=== PATIENT | male | born 1970 | race Caucasian/White ===

== ENCOUNTER → 2016-11-05 | Outpatient (CLI) | payer OTHER ==
[~2016-11-05] VITALS: Ht 180.3 cm; Wt 93.8 kg
[~2016-11-05] MED LIST: BUPR-79 PO; DULO-24 PO
[2016-11-05 15:54] VITALS: BP 142/89; PULSE 80; Ht 180.3 cm; Wt 93.8 kg
== END | disposition home or self-care (01) ==
LOC: C.NEUR 15:36
PROVIDERS: ATTEND Internal Medicine Pulmonary Disease
DX: G47.419 Narcolepsy without cataplexy (principal)

== ENCOUNTER → 2017-03-18 | Outpatient (CLI) | payer OTHER ==
[2017-03-18 09:31] LABS: BASO % 0.5 %; BASO ABS # 0.03 K/uL (0-0.2); COMPLETE YES; EOS % 2.5 %; HEMATOCRIT 43.7 % (42-52); IG% 0.3 %; LYMPH % 32.3 %; LYMPH ABS # 1.93 K/uL (1.2-3.4); MEAN CORPUSCULAR HEMOGLOBIN 30.5 pg (25-34); MEAN CORPUSCULAR HGB CONC 34.3 g/dl (32-36); MEAN PLATELET VOLUME 11.7 fL (7.4-10.4); MONO % 10.6 %; NEUT % 53.8 %; PLATELET COUNT 268 K/uL (130-400); RED BLOOD COUNT 4.91 M/uL (4.7-6.1); WHITE BLOOD COUNT 5.97 K/uL (4.8-10.8)
[2017-03-18 09:44] LABS: BLOOD UREA NITROGEN 16 mg/dl (7-18); GLUCOSE 109 mg/dl (70-99)
[2017-03-18 09:45] LABS: BUN/CREATININE RATIO 13.6 (10-20); CALCIUM 9.2 mg/dl (8.5-10.1); CARBON DIOXIDE 29 mmol/L (21-32); CHLORIDE 105 mmol/L (98-107); CHOLESTEROL 207 mg/dl (0-200); SODIUM 139 mmol/L (136-145)
[2017-03-18 09:55] LABS: CHOLESTEROL/HDL RATIO 4.1; HDL CHOLESTEROL 50 mg/dl; LDL CHOLESTEROL CALCULATED 133 mg/dl; TRIGLYCERIDES 119 mg/dl (0-150); VERY LOW DENSITY LIPOPROT CALC 24 mg/dl
== END | disposition home or self-care (01) ==
LOC: C.LAB1850 08:12
PROVIDERS: ATTEND Internal Medicine
DX: G47.419 Narcolepsy without cataplexy (principal); E78.5 Hyperlipidemia, unspecified; E87.6 Hypokalemia

== ENCOUNTER → 2017-09-01 | Outpatient (CLI) | payer OTHER ==
--- NOTE | 2017-09-02 06:02 | PAP/PSG TECHNICIAN REPORT ---
[facility] Auto Fleet Maintenance Manager Polysomnogram Report Study name: None Report date: 09/02/2017 Study date: 09/01/2017 Referring Physician: Dr. Connor Name: Latonya TRUJILLO Interpreting Physician: Jasen Berg D.O. Date of : 1970 Auto Fleet Maintenance Manager: Néstor Mcfadden RPSGT. Sex: Male Age: 47 StudyType: PSG Weight: 204 lbs Height: 47 years, Height 5' 11" BMI: 28.45 Medications: LISINOPRIL 10 MG, FLUOXETINE HCL 20 MG, RISPERDAL 0.25 MG, VIT D, MECLIZINE HCL 12.5 MG, ARMODAFINIL 250 MG, Patient History PATIENT HAS HISTORY OF HYPERTENSION, DEPRESSION, ANXIETY, NARCOLEPSY AND HYPERLIPIDEMIA. ALSO HAS HISTORY OF DAYTIME SLEEPINESS, LOW ENERGY AND SNORING. HE IS HERE TODAY FOR AN EVALUATION FOR CHRISTY. ESS = 10 RM 8 Parameters Monitored NPSG: E1-M2, E2-M1, Fp1-M2, Fp2-M1, F3-M2, F4-M2, F4-M1, C3-M2, C4-M2, C4-M1, O1-M2, O2-M2, O2-M1, T3-M2, T4-M1, P3-M2, P4-M1, CHIN1, CHIN2, HR, EKG, Legs, PFLOW, SNOR, FLOW, CFLOW, Tidal Volume, THOR, ABDO, SpO2, PLTH, CPRESS, ETCO2 Wave, ETCO2, pH Sleep Architecture Sleep Stages Time at Lights Off 9:25:33 PM STAGES Time (min.) TST (%) Time at Lights On 5:35:03 AM Wake 26.5 -- Total Recording Time (TRT) 490.00 min. N1 21.5 5 Total Sleep Period (TSP) 476.5 min. N2 268.0 58 Total Sleep Time (TST) 463.0min. N3 42.5 9 Awake Time 27.0 min. REM 131.0 28 Wake after Sleep Onset 13.5 min. Sleep Efficiency (SE) 95 % Sleep Onset Latency (GERALD) 13.0 min. Number of Stage 1 Shifts None Awakenings 14 Stage Changes 77 Number of REM periods 11 REM 131.0 28 REM Latency 60.0 min. NREM 332.0 72 Body Position Analysis Supine Right Left Side Prone Vertical Total Sleep Time (min.) 405.3 0.0 83.2 83.21 0.0 0.0 Total Sleep Time (%) 82% 0% 18% 18 0% N/A% Total Sleep Time REM (min.) 114.5 0.0 16.5 None 0.0 0.0 Total Sleep Time NREM (min.) 265.3 0.0 66.7 None 0.0 0.0 Intermittent Wake (min.) 25.5 0.0 1.0 None 0.0 0.0 Total Sleep Period (%) 82% None None None None None Arousals Myoclonus (PLM) * Events Count Index Events Count Index Spontaneous 51 7 Events Awake (PLMW) 24 54.3 Respiratory 8 1.0 Events Asleep w/ Arousal (PLMA) 3 0.4 PLM 3 0 Events Asleep w/o Arousal (PLMS) 75 9.7 Snoring 4 1 Total Asleep 78 10.1 Total 66 9 Total 102 13 Respiratory Analysis * CA OA MA CH H RERA Total Count 5 0 0 0 52 4 57 Index 0.6 0.0 0.0 0 6.7 1 7.9 Mean Duration 17.5 0.0 0.0 0.00 28.8 17.6 27.2 Longest Duration 21.2 0.0 0.0 0.00 0.0 21.5 48.6 Respiratory Event Summary Total Supine ~Supine Right Left Prone REM NREM Apneas Count 5 5 0 N/A 0 N/A 3 2 Index 0.6 1 0 N/A 0.0 N/A 1 0 Hypopneas (4% Desat) Count 52 52 0 N/A 0 N/A 21 31 Index 6.7 8.2 0 N/A 0.0 N/A 9.6 5.6 Apneas & All Hypopneas Count 57 57 0 N/A 0 N/A 24 33 Index 7.4 9 0 N/A 0 N/A 11.0 6.0 Respiratory Events ([employer]+All Hyp+RERA) Count 57 61 0 N/A 0 N/A 24 33 Index 7.9 10 0 N/A 0.0 N/A 11.0 6.7 Respiratory Related Arousal Count 8 61 0 N/A 0 N/A 1 7 Index 1.0 1 0 N/A 0 N/A 0 1 Snoring Analysis Supine Right Left Prone REM NREM Total Snore duration 9.4 min Snores count 409 N/A 8 N/A 54 363 417 Snore mean duration 1.4 Sec Snores index 65 N/A 6 N/A 24.7 65.6 54.0 TST with snoring (%) 2.0% Desaturation Event Summary: Minimum %SpO2 Event Count Mean/Min/Max Duration(sec.) Desaturation Index % Time In Bed > 90 54 42.9 / 13.8 / 101.4 6.7 99.9 86 - 90 0 N/A 0.0 0.1 81 - 85 0 N/A 0.0 0.0 76 - 80 0 N/A 0.0 0.0 71 - 75 0 N/A 0.0 0.0 66 - 70 0 N/A 0.0 0.0 61 - 65 0 N/A 0.0 0.0 56 - 60 0 N/A 0.0 0.0 51 - 55 0 N/A 0.0 0.0 < 50 0 N/A 0.0 0.0 Total REM NREM Awake <50% 0.0 min. 0.0 min. 0.0 min. 0.0 min. 51 - 60% 0.0 min. 0.0 min. 0.0 min. 0.0 min. 61 - 70% 0.0 min. 0.0 min. 0.0 min. 0.0 min. 71 - 80% 0.0 min. 0.0 min. 0.0 min. 0.0 min. 81 - 90% 0.5 min. 0.4 min. 0.1 min. 0.0 min. 91 - 100% 487.0 min. 130.6 min. 330.1 min. 26.3 min. Average 96 96 95 96 Minimum SpO2 89 90 89 93 Desaturation Event Index 6.6 9.6 6.0 2.3 # Desat. Events below 89% N/A N/A N/A N/A Time(%) with Saturation below 89% 0.0 0.0 0.0 0.0 Time(min.) with Saturation below 89% 0.0 0.0 0.0 0.0 Time (mins) REM (mins) NREM (mins) % of TST SpO2 Below 90% 3 2 N1 0.0 SpO2 Below 88% 0 0 0 0 Heart Rate Analysis Min (bpm) Max (bpm) Average (bpm) Awake 54 109 70 NREM 53 93 63 REM 55 99 68 Overall 53 99 64 Supplemental O2 Values Minimum O2 level: None Value Start Time End Time Auto Fleet Maintenance Manager Comments Mr. Trujillo slept in the supine and left positions. No cardiac arrhythmia noted. Leg movements noted. No bruxism noted. Snoring was noted and scored as a 3 on a scale of 1 through 5. (0=no snoring, 5=snoring loud enough to be heard through a closed door or down the ross way) Mr. Trujillo awoke to use the restroom 0 times during the night. Mr. Trujillo stated I did not sleep as well as I do when I am in my own bed. The final report will be interpreted and signed by a sleep physician. The completed physician report will then be placed in the patient medical record. Therapy (cm H2O) 0 TIB (min.) 489.5 TST (min.) 463.0 Sleep Onset (min.) 13.0 REM Onset From Sleep (min.) 60.0 Sleep Efficiency % 95 Wakefulness (%) 5 Wakefulness (min.) 27.0 NREM 1 (%) 5 NREM 1 (min.) 21.5 NREM 2 (%) 58 NREM 2 (min.) 268.0 NREM 3 (%) 9 NREM 3 (min.) 42.5 REM (%) 28 REM (min.) 131.0 # Arousals 66 Arousal Index 9 # Snore 417 Snore Index 54.0 AHI 7.4 AHI Supine 9 AHI Non-Supine 0 NREM AHI 6.0 REM AHI 11.0 RDI 7.9 # Obstructive Apnea 0 # Central Apnea 5 # Mixed Apnea 0 # Hypopneas 52 RERAs 4 Total Respiratory Events 61 Time Below SpO2 89% (min.) 0.0 Mean NREM SpO2 (%) 95 Mean REM SpO2 (%) 96 Mean Sleep SpO2 (%) 96 Min NREM SpO2 (%) 89 Min REM SpO2 (%) 90 Position Supine (min.) 405.3 Position Non-supine (min.) 83.2 LM Index Sleep 10.1 LM Index NREM 2.2 LM Index REM 30.2 Mean Heart Rate (bpm) 64 Min Heart Rate (bpm) 53
--- NOTE | 2017-09-08 19:43 | Sleep Study ---
Sleep Study Report Date of Service: 09/01/2017 Sleep Study Report Clinical data: The patient is a 47-year-old male with a history of narcolepsy. He had a diagnostic sleep study done 11/26/2014 showing an apnea-hypopnea index normal at 2.9. On 12/26/2014 he had multiple sleep latency testing done. 3/4 naps had REM sleep and the mean sleep latency for 4 naps was 0.5 minutes. This was consistent with narcolepsy. The patient is having snoring, decreased energy, and daytime sleepiness. His [place] Sleepiness Scale score is 10. He is referred by Dr. Connor for a diagnostic polysomnography. Sleep architecture: The total sleep period was 476.5 minutes. The total sleep time was 463 minutes. Sleep efficiency was normal at 95 percent. Sleep latency was 13 minutes. Wake after sleep onset was 13.5 minutes. REM latency was 60 minutes which is normal. Sleep consisted of stage N1 5 percent, stage N2 58 percent, stage N3 9 percent, stage REM 28 percent. Arousal data: The patient had a total of 66 arousals including 51 spontaneous arousals, 8 respiratory arousals, 3 PLM arousals, and 4 snoring arousals. The arousal index was 9. PLM data: The patient had a total of 78 periodic limb movements of sleep for a PLM index of 10.1. There were only 3 arousals associated with limb movements for a PLM arousal index of 0.4. EKG: The underlying cardiac rhythm was normal sinus. The cardiac rates 53-99 beats per minute. The average heart rate was 64 beats per minute. No arrhythmia was noted. Respiratory data: The patient had a total of 57 respiratory events including 5 central apneas and 52 hypopneas. Hypopneas were scored according to the 4 percent desaturation rule. The longest apnea was 21.2 seconds. The mean duration of the hypopneas was 28.8 seconds. In addition there were 4 RERAs. The apnea-hypopnea index was mildly elevated at 7.4 events per hour. This would represent mild sleep apnea. Oximetry data: The average saturation for the night was 96 percent. The minimum saturation was 89 percent. Wastewater Operator comments: The patient slept in the supine and left positions. No cardiac arrhythmia noted. Leg movements noted. As a 3 on a scale of 1 through 5. The patient did not awaken to use the restroom. Impression: 1. Mild obstructive sleep apnea 2. Narcolepsy by history Comments: This study showed evidence of mild CHRISTY. This reflected an increase in sleep disordered breathing compared with his prior study done in 2015. The sleep efficiency was high. Oxygenation was normal. In light of the fact the patient has symptoms of daytime somnolence, consideration is given to treatment of the underlying CHRISTY with nasal CPAP. RECOMMENDATIONS: 1. Consideration is given to a trial of nasal CPAP. This could be accomplished by referral back for an in-lab CPAP titration study. Alternatively he could be treated with auto CPAP. 2. The patient should continue with his pharmacologic therapy for the narcolepsy. 3. The patient should have a regular sleep-wake schedule and he should allow at least 7.5 hours of sleep time per night. Copies To 1: Jasen Berg DO; Effie Spear PA-C; Bruce Connor M.D.
== END | disposition home or self-care (01) ==
LOC: C.NEUR 20:00
PROVIDERS: ATTEND Internal Medicine
DX: G47.419 Narcolepsy without cataplexy (principal); R06.83 Snoring

== ENCOUNTER → 2017-10-06 | Outpatient (CLI) | payer OTHER ==
--- NOTE | 2017-10-07 06:00 | PAP/PSG TECHNICIAN REPORT ---
[facility] Dust Collector Ore Crushing Polysomnogram Report Study name: None Report date: 10/07/2017 Study date: 10/06/2017 Referring Physician: Effie Spear PA-C, PA-C Name: Latonya TRUJILLO Interpreting Physician: Jasen Berg D.O. Date of : 1970 Dust Collector Ore Crushing: [facility]or[facility] Sex: Male Age: 47 Study Type: PSG Weight: 204 lbs Height: 47 years, Height 5' 11" BMI: 28.45 Medications: LISINOPRIL 10 MG, FLUOXETINE HCL 20 MG, RISPERDAL 0.25 MG, VIT D, MECLIZINE HCL 12.5 MG, ARMODAFINIL 250 MG, Patient History 47 yr-old male here for a new CPAP treatment study. He was found to be positive for CHRISTY with an AHI of 7.4. His diagnostic study was on 09/01/17. He chose an Eson 2 nasal mask size medium from [employer]. The test was started on room air and 4 CMH2O. ETCO2 testing was not utilized during this study. Room 1 Parameters Monitored NPSG: E1-M2, E2-M1, Fp1-M2, Fp2-M1, F3-M2, F4-M2, F4-M1, C3-M2, C4-M2, C4-M1, O1-M2, O2-M2, O2-M1, T3-M2, T4-M1, P3-M2, P4-M1, CHIN1, CHIN2, HR, EKG, Legs, PFLOW, SNOR, FLOW, CFLOW, Tidal Volume, THOR, ABDO, SpO2, PLTH, CPRESS, ETCO2 Wave, ETCO2, pH Sleep Architecture Sleep Stages Time at Lights Off 9:59:41 PM STAGES Time (min.) TST (%) Time at Lights On 5:31:41 AM Wake 108.5 -- Total Recording Time (TRT) 452.00 min. N1 47.5 14 Total Sleep Period (TSP) 397.5 min. N2 205.5 60 Total Sleep Time (TST) 343.5min. N3 26.0 8 Awake Time 108.5 min. REM 64.5 19 Wake after Sleep Onset 54.0 min. Sleep Efficiency (SE) 76 % Sleep Onset Latency (GERALD) 54.5 min. Number of Stage 1 Shifts None Awakenings 13 Stage Changes 95 Number of REM periods 3 REM 64.5 19 REM Latency 101.0 min. NREM 279.0 81 Body Position Analysis Supine Right Left Side Prone Vertical Total Sleep Time (min.) 348.8 76.2 0.0 76.18 0.0 0.0 Total Sleep Time (%) 78% 22% 0% 22 0% N/A% Total Sleep Time REM (min.) 64.5 0.0 0.0 None 0.0 0.0 Total Sleep Time NREM (min.) 202.8 76.2 0.0 None 0.0 0.0 Intermittent Wake (min.) 81.5 27.0 0.0 None 0.0 0.0 Total Sleep Period (%) 76% None None None None None Arousals Myoclonus (PLM) * Events Count Index Events Count Index Spontaneous 48 8 Events Awake (PLMW) 39 21.6 Respiratory 5 0.9 Events Asleep w/ Arousal (PLMA) 3 0.5 PLM 3 1 Events Asleep w/o Arousal (PLMS) 37 6.5 Snoring 2 0 Total Asleep 40 7.0 Total 58 10 Total 79 10 Respiratory Analysis * CA OA MA CH H RERA Total Count 8 1 0 0 3 2 12 Index 1.4 0.2 0.0 0 0.5 0 2.4 Mean Duration 13.9 17.7 0.0 0.00 27.3 19.1 17.8 Longest Duration 17.7 17.7 0.0 0.00 0.0 20.0 34.7 Respiratory Event Summary Total Supine ~Supine Right Left Prone REM NREM Apneas Count 9 8 1 1 N/A N/A 3 6 Index 1.6 2 1 0.8 N/A N/A 3 1 Hypopneas (4% Desat) Count 3 3 0 0 N/A N/A 0 3 Index 0.5 0.7 0 0.0 N/A N/A 0.0 0.6 Apneas & All Hypopneas Count 12 11 1 1 N/A N/A 3 9 Index 2.1 2 1 1 N/A N/A 2.8 1.9 Respiratory Events ([employer]+All Hyp+RERA) Count 12 13 1 1 N/A N/A 3 9 Index 2.4 3 1 0.8 N/A N/A 2.8 2.4 Respiratory Related Arousal Count 5 13 1 1 N/A N/A 0 5 Index 0.9 1 1 1 N/A N/A 0 1 Snoring Analysis Supine Right Left Prone REM NREM Total Snore duration 10.8 min Snores count 437 3 N/A N/A 22 418 440 Snore mean duration 1.5 Sec Snores index 98 2 N/A N/A 20.5 89.9 76.9 TST with snoring (%) 3.2% Desaturation Event Summary: Minimum %SpO2 Event Count Mean/Min/Max Duration(sec.) Desaturation Index % Time In Bed > 90 8 23.5 / 10.5 / 42.8 1.1 100.0 86 - 90 0 N/A 0.0 0.0 81 - 85 0 N/A 0.0 0.0 76 - 80 0 N/A 0.0 0.0 71 - 75 0 N/A 0.0 0.0 66 - 70 0 N/A 0.0 0.0 61 - 65 0 N/A 0.0 0.0 56 - 60 0 N/A 0.0 0.0 51 - 55 0 N/A 0.0 0.0 < 50 0 N/A 0.0 0.0 Total REM NREM Awake <50% 0.0 min. 0.0 min. 0.0 min. 0.0 min. 51 - 60% 0.0 min. 0.0 min. 0.0 min. 0.0 min. 61 - 70% 0.0 min. 0.0 min. 0.0 min. 0.0 min. 71 - 80% 0.0 min. 0.0 min. 0.0 min. 0.0 min. 81 - 90% 0.0 min. 0.0 min. 0.0 min. 0.0 min. 91 - 100% 442.7 min. 63.8 min. 276.3 min. 102.6 min. Average 96 96 96 96 Minimum SpO2 92 93 92 92 Desaturation Event Index 1.1 0.9 1.1 1.1 # Desat. Events below 89% N/A N/A N/A N/A Time(%) with Saturation below 89% 0.0 0.0 0.0 0.0 Time(min.) with Saturation below 89% 0.0 0.0 0.0 0.0 Time (mins) REM (mins) NREM (mins) % of TST SpO2 Below 90% N/A N/A NN/A 0.0 SpO2 Below 88% 0 0 0 0 Heart Rate Analysis Min (bpm) Max (bpm) Average (bpm) Awake 43 127 69 NREM 54 87 67 REM 60 97 71 Overall 54 97 68 Supplemental O2 Values Minimum O2 level: None Value Start Time End Time Dust Collector Ore Crushing Comments Mr. Trujillo slept in the right and supine positions. No cardiac arrhythmias or PLMs noted. No bruxism noted. CPAP was initiated at +4 CMH2O and up-titrated to a level of +5 CMH2O, Cflex 2. He initially used an Eson 2 nasal mask size medium from [employer]. He was unsure of this mask and later in the study changed to an AirFit F10 full face mask size medium from [employer]. He awoke to use the restroom one time during the night. Mr. Trujillo stated that he slept about the same as usual. The final report will be interpreted and signed by a sleep physician. The completed physician report will then be placed in the patient medical record. Therapy Event: Therapy (cm H20) 4 5 Total Time at Pressure (min.) 355.7 96.3 TST at Pressure (min.) 248.2 95.3 # Periods 1 1 Sleep Onset (min.) 54.5 0.0 REM Onset (min.) 155.5 37.3 Sleep Efficiency % 69 99 Wakefulness (%) 30.2 1.0 Wakefulness (min.) 107.5 1.0 NREM 1 (%) 9.1 15.6 NREM 1 (min.) 32.5 15.0 NREM 2 (%) 41.7 59.5 NREM 2 (min.) 148.2 57.3 NREM 3 (%) 6.7 2.1 NREM 3 (min.) 24.0 2.0 REM (%) 12.2 21.8 REM (min.) 43.5 21.0 # Arousals 45 13 Arousal Index 10.9 8.2 # Snore 169 271 Snore Index 40.9 170.6 AHI 1.9 2.5 AHI Supine 2.4 2.5 AHI Non-Supine 0.8 N/A NREM AHI 1.5 3.2 REM AHI 4.1 0.0 RDI 2.4 2.5 # Obstructive 0 1 # Central Ap 7 1 # Mixed 0 0 # Hypopneas 1 2 RERAS 2 0 Total Respiratory Events 10 4 Time Below SpO2 89.00% (min.) 0.0 0.0 Mean NREM SpO2 (%) 96 96 Mean REM SpO2 (%) 96 96 Mean Sleep SpO2 (%) 96 96 Min NREM SpO2 (%) 93 92 Min REM SpO2 (%) 93 94 Position Supine (min.) 172.0 95.3 Position Non-supine (min.) 76.2 0.0 LM Index Sleep 6.5 8.2 LM Index NREM 2.1 0.0 LM Index REM 27.6 37.1 Mean Heart Rate (bpm) 69 64 Min Heart Rate (bpm) 54 55
--- NOTE | 2017-10-09 11:41 | Sleep Study ---
Sleep Study Report Date of Service: 10/06/2017 Sleep Study Report CLINICAL DATA: The patient is a 47-year-old male with a history of narcolepsy that was diagnosed in December 2014. At that time he had multiple sleep latency testing with 3/4 naps showing REM sleep. He has been on armodafinil. He has persisted with some degree of daytime sleepiness as well as snoring and decreased energy. A diagnostic sleep study was done 09/01/2017. This showed mild sleep apnea with an apnea-hypopnea index of 7.4. The patient is referred back for a trial of nasal CPAP. SLEEP ARCHITECTURE: The total sleep period was 397.5 minutes. The total sleep time was 343.5 minutes. The sleep efficiency was moderately reduced to 76 percent. Sleep latency was prolonged to 54.5 minutes. Wake after sleep onset was prolonged to 54 minutes. REM latency was normal at 101 minutes. Sleep consisted of stage N1 14 percent, stage N2 60 percent, stage N3 8 percent, stage REM 19 percent. AROUSAL DATA: The patient had a total of 58 arousals including 48 spontaneous arousals, 5 respiratory arousals, 3 PLM arousals, and 2 snoring arousals. The arousal index was 10. PLM DATA: Patient had a total of 40 periodic limb movements of sleep for a PLM index of 7.0. There were 3 arousals associated with limb movements for a PLM arousal index of 0.5. EKG: The underlying cardiac rhythm was normal sinus. The cardiac rates 54-97 beats per minute. The average heart rate was 68 beats per minute. No cardiac arrhythmia was noted. RESPIRATORY DATA: The patient's respiratory events were treated with nasal CPAP. The patient had a total of 12 respiratory events including 8 central apneas, all 1 obstructive apnea, and 3 hypopneas. The longest apnea was 17.7 seconds. The mean duration of the hypopneas was 27.3 seconds. The apnea-hypopnea index was 2.1. OXIMETRY DATA: The average saturation for the night was 96 percent. The minimum saturation was 92 percent. There were 0 minutes with saturations less than 89 percent. PERSONAL CARE AIDE COMMENTS: The patient slept on the right and supine positions. No cardiac arrhythmias noted. No bruxism noted. CPAP was initiated at 4 centimeters and up titrated to 5 centimeters with C flex 2. He initially used an Eson 2 nasal mask size medium. He was not comfortable with this mask any later changed to an air fit F10 full face mask size medium made by [employer]. He awaken to use the restroom 1 time during the night. IMPRESSIONS: 1. Obstructive sleep apnea-improved with nasal CPAP at 5 centimeters 2. Narcolepsy by history COMMENTS: The patient did fairly well with nasal CPAP therapy. He did have a marked prolongation to the onset of sleep. He also had 1 prominent awakening during the nighttime. It did not require very much pressure to resolve his sleep apnea. Oxygenation was normal. Patient felt better with the fullface mask than with the nasal mask. RECOMMENDATIONS: 1. The patient should be started on nasal CPAP at 5 centimeters with C flex 2 2. It is suggested that he be ordered an air fit F10 full face mask size medium from [employer]. 3. The patient should continue with the armodafinil 4. The patient's BMI is mildly elevated at 28.45. Weight loss is advised. 5. If possible the patient should avoid sleeping in the supine position. Copies To 1: Jasen Berg DO; Effie Spear PA-C; Bruce Connor M.D.
== END | disposition home or self-care (01) ==
LOC: C.NEUR 20:00
PROVIDERS: ATTEND Physician Assistant
DX: G47.30 Sleep apnea, unspecified (principal)

== ENCOUNTER → 2017-12-13 | Outpatient (CLI) | payer OTHER ==
[2017-12-13 14:12] LABS: ALT/SGPT 33 U/L (12-78); AST/SGOT 33 U/L (15-37); BLOOD UREA NITROGEN 7 mg/dl (7-18); CALCIUM 9.3 mg/dl (8.5-10.1); CARBON DIOXIDE 29 mmol/L (21-32); CREATININE 0.99 mg/dl (0.60-1.40); GLUCOSE 105 mg/dl (70-99); POTASSIUM 3.7 mmol/L (3.5-5.1); SODIUM 134 mmol/L (136-145)
[2017-12-13 14:15] LABS: CHOLESTEROL 173 mg/dl (0-200); LDL CHOLESTEROL CALCULATED 99 mg/dl
== END | disposition home or self-care (01) ==
LOC: C.LAB1850 11:34
PROVIDERS: ATTEND Internal Medicine
DX: E78.5 Hyperlipidemia, unspecified (principal); I10 Essential (primary) hypertension; E55.9 Vitamin D deficiency, unspecified; E87.6 Hypokalemia